=== PATIENT | male | born 1960 | race American Indian/Alaskan Native ===

== ENCOUNTER 2021-04-13 10:47 | Observation (INO) | payer OTHER ==
--- NOTE | 2021-04-13 11:44 | Emergency Department Report ---
HPI - General Chief Complaint: Dyspnea/Respdistress Time Seen by Provider: 04/13/21 11:14 - HPI HPI: Room 24 The patient is a 60-year-old male present with a chief complaint of dizziness and near syncope. The patient states he was at work this morning when he began to feel dizzy and short of breath with substernal chest pressure has been intermittent. Patient admits to nausea but denies vomiting. Patient denies diaphoresis. The patient states he attempted to drive himself to the [place] facility but his dizziness worsened prompting him to well puller head and call 911. Patient describes his chest pain as a pressure and intermittent in nature. Mary ent stated a stress test last year but has never had a cardiac catheterization. Patient states he was vaccinated against Covid receiving a [email or web address] vaccine March 2021 ED Past Medical Hx - Past Medical History Previous Medical History?: Yes Hx Renal Disease: Yes (Chronic renal insufficiency) Additional medical history: ANXIETY," arrhythmia " - Surgical History Past Surgical History?: No Additional Surgical History: Bilateral foot surgery - Family History Family history: no significant - Social History Smoking Status: Former Smoker (None times months) Substance Use Type: None (Denies illicit drug use), Alcohol (Occasional) ED Review of Systems ROS: Stated complaint: SHORTNESS OF BREATH Other details as noted in HPI Constitutional: denies: diaphoresis, fever Eyes: denies: eye pain ENT: denies: throat pain Respiratory: shortness of breath Cardiovascular: chest pain Endocrine: no symptoms reported Gastrointestinal: nausea. denies: vomiting Genitourinary: denies: dysuria Musculoskeletal: denies: back pain Neurological: denies: headache Physical Exam - Physical Exam Vital Signs: Vital Signs 04/13/21 04/13/21 10:48 10:54 Temperature 98 F Pulse Rate 97 H Respiratory 16 Rate Blood Pressure 134/71 [Left] O2 Sat by Pulse 98 96 Oximetry Physical Exam: GENERAL: The patient is well-developed well-nourished male lying on stretcher not appearing to be in acute distress. [] HEENT: Normocephalic. Atraumatic. Extraocular motions are intact. Patient has moist mucous membranes. NECK: Supple. Trachea midline CHEST/LUNGS: Clear to auscultation. There is no respiratory distress noted. HEART/CARDIOVASCULAR: Regular. There is no tachycardia. There is no gallop rub or murmur. ABDOMEN: Abdomen is soft, nontender. Patient has normal bowel sounds. There is no abdominal distention. SKIN: There is no rash. There is no edema. There is no diaphoresis. NEURO: The patient is awake, alert, and oriented. The patient is cooperative. The patient has no focal neurologic deficits. The patient has normal speech. GCS 15. Cranial nerves II through XII grossly intact MUSCULOSKELETAL: There is no evidence of acute injury. ED Course Vital Signs 04/13/21 04/13/21 10:48 10:54 Temperature 98 F Pulse Rate 97 H Respiratory 16 Rate Blood Pressure 134/71 [Left] O2 Sat by Pulse 98 96 Oximetry - Consultations Consultation #1: 04/13/21 14:23 [facility] called 04/13/21 14:33 Case discussed with [place] physician Dr. Hernandez-can admit patient here at [facility] ED Medical Decision Making - Lab Data Result diagrams: 04/13/21 11:37 04/13/21 11:37 Laboratory Tests 04/13/21 04/13/21 04/13/21 11:37 11:37 11:37 WBC 9.0 RBC 4.48 Hgb 13.9 Hct 42.9 MCV 96 H MCH 31 MCHC 32 RDW 12.7 L Plt Count 219 Lymph % (Auto) 15.9 [place] % (Auto) 7.2 Eos % (Auto) 0.6 Baso % (Auto) 0.3 Lymph # (Auto) 1.4 [place] # (Auto) 0.6 Eos # (Auto) 0.1 Baso # (Auto) 0.0 Seg Neutrophils % 76.0 H Seg Neutrophils # 6.8 D-Dimer 195.72 Sodium 142 Potassium 3.9 Chloride 103.6 Carbon Dioxide 25 Anion Gap 17 BUN 14 Creatinine 1.3 Estimated GFR > 60 BUN/Creatinine Ratio 11 Glucose 92 Calcium 9.5 Magnesium 2.10 Total Creatine Kinase 359 H CK-MB (CK-2) 2.6 CK-MB (CK-2) Rel Index 0.7 Troponin T < 0.010 TSH Free T4 04/13/21 11:37 WBC RBC Hgb Hct MCV MCH MCHC RDW Plt Count Lymph % (Auto) [place] % (Auto) Eos % (Auto) Baso % (Auto) Lymph # (Auto) [place] # (Auto) Eos # (Auto) Baso # (Auto) Seg Neutrophils % Seg Neutrophils # D-Dimer Sodium Potassium Chloride Carbon Dioxide Anion Gap BUN Creatinine Estimated GFR BUN/Creatinine Ratio Glucose Calcium Magnesium Total Creatine Kinase CK-MB (CK-2) CK-MB (CK-2) Rel Index Troponin T TSH 0.858 Free T4 1.24 - EKG Data -: EKG Interpreted by Me EKG shows normal: sinus rhythm Rate: normal - EKG Data When compared to previous EKG there are: previous EKG unavailable Interpretation: nonspecific ST-T wave tevin (T wave inversion lead III) - Radiology Data Radiology results: report reviewed (Chest x-ray), image reviewed (Chest x-ray) interpreted by me: Chest [id number] rotated, no pneumothorax. No definite focal infiltrates [facility] [address] [place] [address] XRay Report Signed Patient: ENMA WHITE MR#: [id number] 8 : 1960 Acct:[id number] Age/Sex: 60 / M ADM Date: 04/13/21 Loc: ED Attending Dr: Ordering Physician: EVELINE GARCIA MD Date of Service: 04/13/21 Procedure(s): XR chest 1V ap Accession Number(s): [id number] cc: EVELINE GARCIA MD Fluoro Time In Minutes: CHEST 1 VIEW 04/13/2021 12:25 PM INDICATION / CLINICAL INFORMATION: chest pressure. COMPARISON: None available. FINDINGS: SUPPORT DEVICES: None. HEART / MEDIASTINUM: No significant abnormality. LUNGS / PLEURA: No significant pulmonary or pleural abnormality. No pneumothorax. ADDITIONAL FINDINGS: No significant additional findings. IMPRESSION: 1. No acute findings. Signer Name: Yossi Mantilla MD Signed: 04/13/2021 1:29 PM Workstation Name: [id number] Tra nscribed By: DAVID Dictated By: Yossi Mantilla MD Electronically Authenticated By: Yossi Mantilla MD Signed Date/Time: 04/13/211328 DD/ 28 TD/TT: Print Cancel - Differential Diagnosis ACS, PE, pericarditis, dysrhythmia, GERD Critical care attestation.: If time is entered above; I have spent that time in minutes in the direct care of this critically ill patient, excluding procedure time. ED Disposition Clinical Impression: Chest pain Disposition: ADMITTED INPATIENT Is pt being admited?: Yes Does the pt Need Aspirin: Yes Condition: Stable Instructions: Nonspecific Chest Pain, Adult Referrals: PRIMARY CARE,MD [Primary Care Provider] - 3-5 Days Time of Disposition: 14:33 (Hospitalist called (Dr. Go)) Heart Score - HEART Score History: Moderately suspicious EKG: Non-specific Age: 45-65 Risk factors: 1-2 risk factors Troponin: < normal limit HEART Score: 4 - EKG Read Time Time EKG Completed: 11:57 EKG Read Time: 12:00
[2021-04-13 13:33] LABS: Basophils % (Auto) 0.3 % (0.0-1.8); Eosinophils # (Auto) 0.1 K/mm3 (0.0-0.4); Eosinophils % (Auto) 0.6 % (0.0-4.3); Hematocrit 42.9 % (35.5-45.6); Hemoglobin 13.9 gm/dl (11.8-15.2); Lymphocytes # (Auto) 1.4 K/mm3 (1.2-5.4); Lymphocytes % (Auto) 15.9 % (13.4-35.0); Mean Corpuscular HGB Conc 32 % (32-34); Mean Corpuscular Volume 96 fl (84-94); Monocytes # (Auto) 0.6 K/mm3 (0.0-0.8); Monocytes % (Auto) 7.2 % (0.0-7.3); Platelet Count 219 K/mm3 (140-440); Red Blood Count 4.48 M/mm3 (3.65-5.03); Red Cell Distribution Width 12.7 % (13.2-15.2)
--- NOTE | 2021-04-13 13:34 | XRay Report ---
CHEST 1 VIEW 04/13/2021 12:25 PM INDICATION / CLINICAL INFORMATION: chest pressure. COMPARISON: None available. FINDINGS: SUPPORT DEVICES: None. HEART / MEDIASTINUM: No significant abnormality. LUNGS / PLEURA: No significant pulmonary or pleural abnormality. No pneumothorax. ADDITIONAL FINDINGS: No significant additional findings. IMPRESSION: 1. No acute findings. Signer Name: Yossi Mantilla MD Signed: 04/13/2021 1:29 PM Workstation Name: [id number]
[2021-04-13] MEDS ORDERED: ASPIRIN 325 MG TAB PO ONE (13:48)
[2021-04-13] MEDS ORDERED: NITROGLYCERIN 2% OINT 1 GM TP ONE (13:48)
[2021-04-13 13:59] LABS: BUN/Creatinine Ratio 11; Blood Urea Nitrogen 14 mg/dL (9-20); Calcium 9.5 mg/dL (8.4-10.2); Creatine Kinase MB 2.6 ng/mL (0.0-4.0); Hemolysis Index 14
[2021-04-13 14:05] LABS: Free T4 (Free Thyroxine) 1.24 ng/dL (0.76-1.46)
--- NOTE | 2021-04-13 14:35 | History and Physical Report ---
History of Present Illness Chief complaint: I was having chest pain History of present illness: 60 YO Male with GOLDEN, Cardiac Arrythmia NOS presents to ED for evaluation. Patient reports "my chest hurts". Patient states that he experienced a sudden onset of chest pain this morning while at work. Patient states that pain was 5/10, intermittent, crushing in nature, substernal, nonradiating, associated with shortness of breath, as well as shortness of breath, and near syncope. Patient attempted to drive himself to the hospital for evaluation but was unable to complete the drive due to worsening chest pain. EMS was notified and upon arrival the patient was found to be in distress and subsequent transported to [facility] for further care and evaluation of the aforementioned symptoms. The patient was seen and evaluated in the emergency department. All lab and imaging studies reviewed. Patient found to have symptoms consistent with angina, as well as diastolic congestive heart failure. Patient admitted to telemetry and initiated on ACS protocol. Patient denies fever, chills, productive cough, skin rash, rec ent contact, known exposure to COVID-19. Patient is fully vaccinated against COVID-19. Cardiology team consulted in ED. No prior admission for review. No medication listed at time of admission for reconciliation. Advanced care planning conducted in ED. Past History Past Medical History: renal failure, other Past Surgical History: Other (Foot surgery) Social history: single. denies: smoking, alcohol abuse, prescription drug abuse Family history: diabetes, hypertension Medications and Allergies Allergies Allergy/AdvReac Type Severity Reaction Status Date / Time No Known Allergies Allergy Verified 04/13/21 10:42 Review of Systems Constitutional: no weight loss, no weight gain, no chills, no sweats Ears, nose, mouth and throat: no ear pain, no tinnitis, no decreased hearing, no nose pain Cardiovascular: chest pain, syncope, shortness of breath, decreased exercise tolerance, no orthopnea, no palpitations Respiratory: no cough, no cough with sputum, no hemoptysis Gastrointestinal: no nausea, no vomiting, no diarrhea, no constipation Genitourinary Male: no hematuria, no flank pain, no discharge, no urinary frequency, no urinary hesitancy Rectal: no pain, no incontinence, no bleeding Musculoskeletal: no neck stiffness, no neck pain, no shooting arm pain, no arm numbness/tingling, no low back pain Integumentary: no rash, no pruritis, no redness, no sores, no wounds Neurological: no transient paralysis, no paralysis, no parathesias, no tingling, no seizures, no syncope Psychiatric: no anxiety, no memory loss, no hypersomnia, no change in appetite, no disorientation Endocrine: no cold intolerance, no heat intolerance, no excessive thirst, no polydipsia, no polyuria Hematologic/Lymphatic: no easy bruising, no easy bleeding Allergic/Immunologic: no persistent infections Exam - Constitutional Vitals: Temp Pulse Resp BP Pulse Ox 98 F 77 16 127/85 100 04/13/21 10:48 04/13/21 13:51 04/13/21 13:51 04/13/21 13:51 04/13/21 13:51 General appearance: Present: mild distress - EENT Eyes: Present: PERRL ENT: hearing intact, clear oral mucosa - Neck Neck: Present: supple, normal ROM - Respiratory Respiratory effort: normal Respiratory: bilateral: CTA - Cardiovascular Heart Sounds: Present: S1 & S2. Absent: rub, click - Extremities Extremities: pulses symmetrical, No edema Peripheral Pulses: within normal limits - Abdominal General gastrointestinal: Present: soft, non-tender, non-distended, normal bowel sounds Male genitourinary: Present: normal - Integumentary Integumentary: Present: clear, warm, dry - Musculoskeletal Musculoskeletal: gait normal, strength equal bilaterally - Psychiatric Psychiatric: appropriate mood/affect, intact judgment & insight - Neurologic Neurologic: CNII-XII intact, moves all extremities HEART Score - HEART Score EKG: Non-specific Age: 45-65 Risk factors: 1-2 risk factors Troponin: Troponin T < 0.010 ng/mL (0.00-0.029) 04/13/21 11:37 Troponin: < normal limit Results - Labs CBC & Chem 7: 04/13/21 11:37 04/13/21 11:37 Labs: Abnormal lab results 04/13/21 04/13/21 Range/Units 11:37 11:37 MCV 96 H (84-94) fl RDW 12.7 L (13.2-15.2) % Seg Neutrophils % 76.0 H (40.0-70.0) % Total Creatine Kinase 359 H (55-170) units/L Assessment and Plan - Patient Problems (1) Angina at rest Current Visit: Yes Status: Acute Plan to address problem: ACS protocol: Serial cardiac enzymes, EKG, telemetry, cardiology team consulted. Patient pending stress test in a.m. Further care and evaluation per cardiology team. (2) Diastolic CHF Current Visit: Yes Status: Suspected Qualifiers: Heart failure chronicity: acute Qualified Code(s): I50.31 - Acute diastolic (congestive) heart failure Plan to address problem: Strict I/O, monitor urine output every shift, blood pressure control, afterload reduction, cardiology team consulted. BNP, (3) GERD (gastroesophageal reflux disease) Current Visit: Yes Status: Acute Qualifiers: Esophagitis presence: without esophagitis Qualified Code(s): K21.9 - Gastro-esophageal reflux disease without esophagitis Plan to address problem: PPI therapy, supportive care (4) DVT prophylaxis Current Visit: Yes Status: Acute Plan to address problem: SCD to bilateral lower extremities while in bed, patient is ambulatory (5) Advance care planning Current Visit: Yes Status: Acute Plan to address problem: Disease education conducted, care plan discussed, diagnoses discussed, prognosis discussed, patient is full code, patient acknowledges understanding and agreement with care plan, +30 minutes.
[2021-04-13] MEDS ORDERED: ASPIRIN 81 MG TAB CHEW PO STA (14:37)
[2021-04-13] MEDS ORDERED: ACETAMINOPHEN 325 MG TAB PO PRN ×2 (14:37→15:00)
[2021-04-13] MEDS ORDERED: MORPHINE 4 MG/1 ML INJ IV PRN (14:37)
[2021-04-13] MEDS ORDERED: oxyCODONE /ACETAMINOPHEN 5-325MG TAB PO PRN (15:00)
[2021-04-13] MEDS ORDERED: MORPHINE 2 MG/1 ML INJ IV PRN (15:00)
[2021-04-13] MEDS ORDERED: traMADol 50 MG TAB PO PRN (15:00)
[2021-04-13] MEDS ORDERED: ONDANSETRON 4 MG/2 ML INJ IV PRN (15:00)
[2021-04-13] MEDS ORDERED: NITROGLYCERIN 0.4 MG TAB SUBL SL PRN (15:00)
[2021-04-13 15:37] LABS: Chol/HDL Ratio 3.5 %
[2021-04-13] MEDS ORDERED: ALBUTEROL 2.5 MG/3 ML NEBU IH PRN (16:00)
--- NOTE | 2021-04-13 16:30 | Consultation ---
History of Present Illness Consult date: 04/13/21 Requesting physician: JANIA KULKARNI Consult reason: other (angina) History of present illness: Patient is 60-year-old male with a past medical history of CKD, GOLDEN, sleep apnea, and unknown cardiac arrhythmia who presents to the ED today with a complaint of feeling dizzy, shortness of breath, and chest pain which began this morning. Patient reports while at work this morning he suddenly felt dizzy, short of breath, fatigue, and chest pressure. He reports that he tried to drive himself to a [place] facility but was unable to make it due to his symptoms and called EMS. Patient was transported [facility] ER. Patient reports that he has had intermittent chest pressure for years however today it was much worse. He rates the pain as 7 out of 10 and is associated also with some nausea. Patient denies any relieving or exacerbating factors. At time of interview patient states pain has subsided however he still feels weak and dizzy. Patient denies palpitations, diaphoresis, or vomiting. Patient is previously unknown to our practice however he is followed by [facility] [place]. Cardiology is consulted for angina Past History Past Medical History: arrhythmia, other (CKD, sleep apnea,) Past Surgical History: tonsillectomy Social history: smoking (Former smoker) Family history: CAD Medications and Allergies Allergies Allergy/AdvReac Type Severity Reaction Status Date / Time No Known Allergies Allergy Verified 04/13/21 10:42 Active Meds: Active Medications Acetaminophen (Acetaminophen 325 Mg Tab) 650 mg PO Q4H PRN PRN Reason: Pain MILD(1-3)/Fever >100.5/GOMEZ Albuterol (Albuterol 2.5 Mg/3 Ml Nebu) 2.5 mg IH Q4HRT PRN PRN Reason: Shortness Of Breath Atorvastatin Calcium (Atorvastatin 40 Mg Tab) 40 mg PO QHS DEMOND Morphine Sulfate (Morphine 2 Mg/1 Ml Inj) 2 mg IV Q8H PRN PRN Reason: Pain , Severe (7-10) Nitroglycerin (Nitroglycerin 0.4 Mg Tab Subl) 0.4 mg SL Q5M PRN PRN Reason: Chest Pain Ondansetron HCl (Ondansetron 4 Mg/2 Ml Inj) 4 mg IV Q8H PRN PRN Reason: Nausea And Vomiting Oxycodone/Acetaminophen (Oxycodone /Acetaminophen 5-325mg Tab) 1 tab PO Q16H PRN PRN Reason: Pain, Moderate (4-6) Sodium Chloride (Sodium Chloride 0.9% 10 Ml Flush Syringe) 10 ml IV BID DEMOND Sodium Chloride (Sodium Chloride 0.9% 10 Ml Flush Syringe) 10 ml IV PRN PRN PRN Reason: LINE FLUSH Sodium Chloride (Sodium Chloride 0.9% 10 Ml Flush Syringe) 10 ml IV PRN PRN PRN Reason: LINE FLUSH Tramadol HCl (Tramadol 50 Mg Tab) 50 mg PO Q6H PRN PRN Reason: Pain, Moderate (4-6) Review of Systems Constitutional: fatigue, no weight loss, no weight gain Ears, nose, mouth and throat: headache, no nasal congestion, no nasal discharge, no sinus pressure, no sinus pain Cardiovascular: chest pain, syncope, shortness of breath, no orthopnea, no palpitations, no edema Respiratory: shortness of breath, no cough, no cough with sputum, no excessive sputum, no congestion, no wheezing Gastrointestinal: nausea, no abdominal pain, no vomiting Musculoskeletal: no neck stiffness, no neck pain, no shooting arm pain Integumentary: no rash, no pruritis, no redness Neurological: no head injury, no transient paralysis, no paralysis Psychiatric: anxiety Endocrine: no cold intolerance, no heat intolerance Hematologic/Lymphatic: no easy bruising, no easy bleeding Physical Examination Vital Signs Temp Pulse Resp BP Pulse Ox 98 F 97 H 16 134/71 98 04/13/21 10:48 04/13/21 10:48 04/13/21 10:48 04/13/21 10:48 04/13/21 10:48 General appearance: no acute distress HEENT: Positive: PERRL Neck: Positive: trachea midline Cardiac: Positive: Reg Rate and Rhythm Lungs: Positive: clear to auscultation, Normal Breath Sounds Neuro: Positive: Grossly Intact Abdomen: Positive: Soft Skin: Negative: Rash, Suspicious Lesions, Ulceration Extremities: Present: upper extr. pulses. Absent: edema Results 04/13/21 11:37 04/13/21 11:37 Cardiac Enzymes 04/13/21 Range/Units 11:37 CK-MB (CK-2) 2.6 (0.0-4.0) ng/mL Lipids 04/13/21 Range/Units 14:51 Triglycerides 142 (2-149) mg/dL Cholesterol 168 (50-199) mg/dL HDL Cholesterol 48 (40-59) mg/dL Cholesterol/HDL Ratio 3.50 % CBC 04/13/21 Range/Units 11:37 WBC 9.0 (4.5-11.0) K/mm3 RBC 4.48 (3.65-5.03) M/mm3 Hgb 13.9 (11.8-15.2) gm/dl Hct 42.9 (35.5-45.6) % Plt Count 219 (140-440) K/mm3 Lymph # (Auto) 1.4 (1.2-5.4) K/mm3 [place] # (Auto) 0.6 (0.0-0.8) K/mm3 Eos # (Auto) 0.1 (0.0-0.4) K/mm3 Baso # (Auto) 0.0 (0.0-0.1) K/mm3 Comprehensive Metabolic Panel 04/13/21 Range/Units 11:37 Sodium 142 (137-145) mmol/L Potassium 3.9 (3.6-5.0) mmol/L Chloride 103.6 (98-107) mmol/L Carbon Dioxide 25 (22-30) mmol/L BUN 14 (9-20) mg/dL Creatinine 1.3 (0.8-1.3) mg/dL Glucose 92 (75-100) mg/dL Calcium 9.5 (8.4-10.2) mg/dL - Imaging and Cardiology Echo: pending EKG interpretations - Telemetry EKG Rhythm: Sinus Rhythm - EKG Sinus rhythms and dysrhythmias: sinus rhythm Assessment and Plan Patient is 60-year-old male with a past medical history of CKD, GOLDEN, sleep apnea, and unknown cardiac arrhythmia who presents to the ED today with a complaint of feeling dizzy, shortness of breath, and chest pain which began this morning. Chest pain Syncope Obesity TERRI CKD Lexiscan MPI Stress test 11/06/2019: Normal Lexiscan cardiac PET without evidence of myocardial scar or significant myocardial ischemia. No significant coronary calcification noted. Systolic Function: The estimated left ventricular ejection fraction is 65 %at rest and 69 % with stress. Plan: EKG shows sinus rhythm 88 with no acute ischemic changes. Troponins negative x2. Repeat cardiac enzymes pending Patient currently chest pain-free. Patient to be monitored on telemetry Echo pending Patient for stress test in the a.m. N.p.o. after midnight Patient seen in conjunction with Dr. Glasgow who agrees with this plan of care - Patient Problems (1) Obesity Current Visit: Yes Status: Acute (2) Near syncope Current Visit: Yes Status: Acute (3) TERRI (obstructive sleep apnea) Current Visit: Yes Status: Acute (4) Chest pain Current Visit: Yes Status: Acute
[2021-04-14] MEDS ORDERED: REGADENOSON 0.4 MG/5 ML INJ IV ONE (07:23)
[2021-04-14 10:05] VITALS: BP 120/61
--- NOTE | 2021-04-14 10:32 | Nuclear Medicine Report ---
APPROVED REPORT Exam: Nuclear Stress Test Indication: Chest pain Patient Location: [facility] Ht: 5 ft 7 in Wt: 170 lbs BSA: 1.89 m2 HR: 70 bpmBP: 123/71 mmHgBMI: 26.62 Rhythm: NSR Stress Test Details Stress Test: Pharmacologic stress testing performed using 0.4 mg of regadenoson per 5 mL given IV over 10 seconds. Reason for pharmacologic stress test: physical limitation. HR Resting HR: 70 bpm Max HR Achieved: 105 bpm Max Heart Rate (APMHR): 162.425630 bpm Target HR (85% APMHR): 137.247464 bpm % of APMHR: 64.81 Recovery HR: 73 bpm HR response to stress: Normal HR response to stress BP Resting BP: 119/61 mmHg Max BP: 132/71 mmHg Recovery BP: 120/61 mmHg BP response to stress: Normal blood pressure response to stress. ECG Resting ECG: Sinus Rhythm Stress ECG: Sinus Tachycardia Arrhythmia: None Recovery ECG: Sinus Rhythm Clinical Reason for Termination: Completed protocol Stress Symptoms: None NM EXAM: Myocardial Perfusion REST/STRESS Imaging Protocol: Rest Tc-99m/Stress Tc-99m 1 day Resting Data Rest SPECT myocardial perfusion imaging was performed in supine position 45 minutes following the intravenous injection of 10 mCi of Tc-99m Myoview. Time of rest injection: 0700 Date: 04/14/2021 Pharmacologic Stress Pharmacologic stress test was performed by injecting Regadenoson 0.4 mg IV push followed by the intravenous injection of 28 mCi of Tc-99m Myoview. Time of stress injection: 0900 Date: 04/14/2021 Gated Stress SPECT was performed 30 minutes after stress injection. Study Data TID = 1.32. Perfusion Nuclear Conclusion ECG Findings: negative for ischemia Clinical Findings: negative for ischemia Nuclear Findings: negative for ischemia Exercise Capacity: not assessed Left Ventricular Function: normal Normal study. No scintigraphic evidence for myocardial ischemia or scar. Normal left ventricular size and function with no regional wall motion abnormalities.
--- NOTE | 2021-04-14 10:54 | Discharge Summary ---
Providers - Providers Date of Admission: 04/13/21 14:37 Attending physician: JANIA KULKARNI 04/13/21 Consult to Cardiac Rehabilitation [CONS] Routine Reason For Exam: Phase I 04/13/21 14:37 Consult to Physician [CONS] Routine Comment: Consulting Provider: BRUNO CARDOZA Physician Instructions: Reason For Exam: angina/Diastolic CHF Primary care physician: HOSPITAL LABORATORY TECHNICIAN Hospitalization Condition: Stable - Discharge Diagnoses (1) Angina at rest Status: Acute (2) Diastolic CHF Status: Suspected Qualifiers: Heart failure chronicity: acute Qualified Code(s): I50.31 - Acute diastolic (congestive) heart failure (3) GERD (gastroesophageal reflux disease) Status: Acute Qualifiers: Esophagitis presence: without esophagitis Qualified Code(s): K21.9 - Gastro-esophageal reflux disease without esophagitis (4) DVT prophylaxis Status: Acute (5) Advance care planning Status: Acute Exam - Constitutional Vitals: Temp Pulse Resp BP Pulse Ox 98 F 73 20 120/61 98 04/13/21 10:48 04/14/21 05:30 04/14/21 05:30 04/14/21 09:16 04/14/21 05:30 Plan Follow up with: CHASTITY GE MD [Primary Care Provider] - 3-5 Days
--- NOTE | 2021-04-14 12:00 | Progress Note ---
Assessment and Plan Patient is 60-year-old male with a past medical history of CKD, GOLDEN, sleep apnea, and unknown cardiac arrhythmia who presents to the ED today with a complaint of feeling dizzy, shortness of breath, and chest pain which began this morning. Chest pain Syncope Obesity TERRI CKD Lexiscan MPI Stress test 11/06/2019: Normal Lexiscan cardiac PET without evidence of myocardial scar or significant myocardial ischemia. No significant coronary calcification noted. Systolic Function: The estimated left ventricular ejection fraction is 65 %at rest and 69 % with stress. Lexiscan MPI stress test 04/14/2021-normal stress test with no evidence of ischemia or scar with normal EF Preliminary echo 04/14/2021-normal LVEF, EF 50 to 55%, trace MR, trace TR. No pericardial effusion Plan: EKG shows sinus rhythm 88 with no acute ischemic changes. Troponins negative x4. Patient currently chest pain-free. Patient had normal echocardiogram and normal stress test Patient cardiac status stable for discharge. Will sign off Patient should follow-up within 1 to 2 weeks of discharge with their [place] provider Patient seen in conjunction with Dr. Glasgow who agrees with this plan of care - Patient Problems (1) Obesity Current Visit: Yes Status: Acute (2) Near syncope Current Visit: Yes Status: Acute (3) TERRI (obstructive sleep apnea) Current Visit: Yes Status: Acute (4) Chest pain Current Visit: Yes Status: Acute Subjective Date of service: 04/14/21 Principal diagnosis: chest pain,SOB, Near syncope Interval history: Patient for stress test this a.m. Not on monitor Objective Vital Signs Pulse Resp BP BP Pulse Ox 04/14/21 11:01 75 98 04/14/21 09:16 120/61 04/14/21 09:15 126/62 04/14/21 09:14 125/64 04/14/21 09:13 123/62 04/14/21 09:11 132/64 04/14/21 08:28 155/75 04/14/21 08:11 123/71 04/14/21 05:30 73 20 125/59 98 04/14/21 04:09 70 20 120/60 99 04/14/21 00:30 74 20 118/62 98 04/13/21 22:00 80 20 130/71 98 04/13/21 20:02 20 98 01/04/22 19:59 64 20 103/57 98 04/13/21 17:58 65 16 118/47 98 04/13/21 13:51 77 16 127/85 100 - Physical Examination General: No Apparent Distress HEENT: Positive: PERRL Neck: Positive: trachea midline Cardiac: Positive: Reg Rate and Rhythm Lungs: Positive: Normal Breath Sounds Neuro: Positive: Grossly Intact Abdomen: Positive: Soft Skin: Negative: Rash, Suspicious Lesions, Ulceration Extremities: Present: upper extr. pulses. Absent: edema - Labs and Meds Cardiac Enzymes 04/13/21 Range/Units 11:37 CK-MB (CK-2) 2.6 (0.0-4.0) ng/mL Lipids 04/13/21 Range/Units 14:51 Triglycerides 142 (2-149) mg/dL Cholesterol 168 (50-199) mg/dL HDL Cholesterol 48 (40-59) mg/dL Cholesterol/HDL Ratio 3.50 % CBC 04/13/21 Range/Units 11:37 WBC 9.0 (4.5-11.0) K/mm3 RBC 4.48 (3.65-5.03) M/mm3 Hgb 13.9 (11.8-15.2) gm/dl Hct 42.9 (35.5-45.6) % Plt Count 219 (140-440) K/mm3 Lymph # (Auto) 1.4 (1.2-5.4) K/mm3 [place] # (Auto) 0.6 (0.0-0.8) K/mm3 Eos # (Auto) 0.1 (0.0-0.4) K/mm3 Baso # (Auto) 0.0 (0.0-0.1) K/mm3 Comprehensive Metabolic Panel 04/13/21 Range/Units 11:37 Sodium 142 (137-145) mmol/L Potassium 3.9 (3.6-5.0) mmol/L Chloride 103.6 (98-107) mmol/L Carbon Dioxide 25 (22-30) mmol/L BUN 14 (9-20) mg/dL Creatinine 1.3 (0.8-1.3) mg/dL Glucose 92 (75-100) mg/dL Calcium 9.5 (8.4-10.2) mg/dL - Imaging and Cardiology Echo: pending - Telemetry EKG Rhythm: Sinus Rhythm - EKG Sinus rhythms and dysrhythmias: sinus rhythm
--- NOTE | 2021-04-14 13:07 | Electrocardiograph Report ---
[facility], [place] Test Date: 2021-04-13 Test Time: 11:57:57 Pat Name: ENMA WHITE Department: Room: A460 Gender: M [employer] Forms: CORDELL : 1960 Requested By: EVELINE GARCIA Order Number: [id number] Reading MD: Jovanni Garcia Measurements Intervals [place] Rate: 88 P: 52 [place]: 168 QRS: 4 QRSD: 97 T: 10 QT: 375 QTc: 455 Interpretive Statements Sinus rhythm No previous ECG available for comparison Electronically Signed On 04-14-2021 13:06:50 EST by Jovanni Garcia
--- NOTE | 2021-04-14 13:31 | Electrocardiograph Report ---
[facility] Test Date: 2021-04-14 Test Time: 09:48:16 Pat Name: ENMA WHITE Department: Room: A460 1 Gender: M V [employer]: MILTON : 1960 Requested By: JANIA KULKARNI Order Number: [id number] Reading MD: Jovanni Garcia Measurements Intervals [place] Rate: 76 P: 58 [place]: 167 QRS: 2 QRSD: 104 T: 1 QT: 404 QTc: 455 Interpretive Statements Sinus rhythm Compared to ECG 04/13/2021 11:57:57 No significant changes Electronically Signed On 04-14-2021 13:30:26 EST by Jovanni Garcia
== END 2021-04-14 14:30 | disposition home or self-care (01) ==
LOC: ED 10:47 → 4A 14:37
PROVIDERS: ADMIT Internal Medicine; ATTEND Internal Medicine
DX: I20.8 Other forms of angina pectoris (principal); I11.0 Hypertensive heart disease with heart failure; I50.31 Acute diastolic (congestive) heart failure; N19 Unspecified kidney failure; K21.9 Gastro-esophageal reflux disease without esophagitis; I49.9 Cardiac arrhythmia, unspecified; G47.33 Obstructive sleep apnea (adult) (pediatric); F41.9 Anxiety disorder, unspecified; F10.129 Alcohol abuse with intoxication, unspecified; R07.89 Other chest pain; R55 Syncope and collapse; Z79.899 Other long term (current) drug therapy; Z98.890 Other specified postprocedural states; Z87.891 Personal history of nicotine dependence
CPT/HCPCS: 36415; 71045; 78452; 80048; 80061; 82550; 82553; 83735; 84439; 84443; 84484; 85025; 85379; 93005; 93017; 93306; 99285; A9502; G0378; J2785